=== PATIENT | female | born 1995 | race American Indian/Alaskan Native ===

== ENCOUNTER 2018-06-09 20:12 | Inpatient (IN) | payer MEDICAID ==
[2018-06-09] MEDS ORDERED: BRETHINE SUB-Q PRN (22:40)
[2018-06-09] MEDS ORDERED: BRETHINE IVP PRN (22:40)
[2018-06-09] MEDS ORDERED: XYLOCAINE 2% INFILTRATI ONE (22:40)
[2018-06-09] MEDS ORDERED: AMPICILLIN/NS 2 GM/100 ML 2 GM/100 ML BAG IV ONE (22:40)
[2018-06-09] MEDS ORDERED: MINERAL OIL PO PRN (22:40)
[2018-06-09] MEDS ORDERED: PITOCin/NS 30 UNIT/500ML 30 UNITS/500 ML BAG IV SCH (22:41)
[2018-06-09] MEDS ORDERED: AMBIEN PO PRN (22:43)
[2018-06-09] MEDS ORDERED: PITOCin/NS 20 UNIT/1000ML DRIP 20 UNITS/1,000 ML BAG IV SCH (23:00)
[2018-06-09 23:06] LABS: Hematocrit 39.2 % (30.3-42.9); Hemoglobin 13.4 gm/dl (10.1-14.3); Mean Corpuscular HGB Conc 34 % (30-34); Mean Corpuscular Volume 94 fl (79-97); Platelet Count 302 K/mm3 (140-440); Red Blood Count 4.16 M/mm3 (3.65-5.03); Red Cell Distribution Width 14.3 % (13.2-15.2)
[2018-06-09] MEDS: LACTATED RINGERS 1,000 ML IV SCH (23:20)
[2018-06-10] MEDS: LACTATED RINGERS 1,000 ML IV SCH ×3 (04:53→19:55)
--- NOTE | 2018-06-10 08:08 | History and Physical Report ---
History of Present Illness Date of examination: 06/10/18 Date of admission: 06/09/18 20:12 Chief complaint: IOL History of present illness: 23y/o @ 41+2 weeks presents for IOL for postterm . She denies leakage of fluid or vaginal bleeding. Patient transferred her care @ 30 weeks ega. +GBS Past History Past Medical History: no pertinent history Past Surgical History: no surgical history Social history: - Obstetrical History Expected Date of Delivery: 05/31/18 Actual Gestation: 41 Week(s) 4 Day(s) : 1 Para: 0 Hx # Term Pregnancies: 0 Number of Pregnancies: 0 Spontaneous Abortions: 0 Induced : 0 Number of Living Children: 0 Medications and Allergies Allergies Allergy/AdvReac Type Severity Reaction Status Date / Time No Known Allergies Allergy Verified 04/16/18 13:07 Home Medications Medication Instructions Recorded Confirmed Last Taken Type No Known Home Medications [No 06/10/18 06/10/18 Unknown History Reported Home Medications] Active Meds: Active Medications Butorphanol Tartrate (Stadol) 2 mg IV Q2H PRN PRN Reason: Pain , Severe (7-10) Ephedrine Sulfate (Ephedrine Sulfate) 10 mg IV Q2M PRN PRN Reason: Hypotension Lactated Ringer's (Lactated Ringers) 1,000 mls @ 125 mls/hr IV DIRECT FELIX Last Admin: 06/10/18 04:53 Dose: 125 mls/hr Documented by: Oxytocin/Sodium Chloride (Pitocin/Ns 20 Unit/1000ml Drip) 20 units in 1,000 mls @ 125 mls/hr IV DIRECT FELIX Oxytocin/Sodium Chloride (Pitocin/Ns 30 Unit/500ml) 30 units in 500 mls @ 1 ml s/hr IV TITR FELIX; Protocol Last Titration: 06/10/18 06:46 Dose: 6 ml/hr, 6 mls/hr Documented by: Mineral Oil (Mineral Oil) 30 ml PO QHS PRN PRN Reason: Constipation Terbutaline Sulfate (Brethine) 0.25 mg SUB-Q ONCE PRN PRN Reason: Hyperstimulation/Hypertonicity Terbutaline Sulfate (Brethine) 0.25 mg IVP ONCE PRN PRN Reason: Hyperstimulation/Hypertonicity Zolpidem Tartrate (Ambien) 10 mg PO QHS PRN PRN Reason: Insomnia Last Admin: 06/09/18 23:19 Dose: 10 mg Documented by: Review of Systems All systems: negative Genitourinary: no leakage of fluid, no contractions - Vital Signs Vital signs: Vital Signs Pulse Pulse Ox 89 98 06/09/18 21:21 06/09/18 21:21 Temp Pulse Resp BP Pulse Ox 98.8 F 89 18 87/53 99 06/09/18 21:24 06/10/18 04:52 06/09/18 21:24 06/10/18 04:20 06/10/18 04:52 - Physical Exam Breasts: Positive: deferred Cardiovascular: Regular rate Lungs: Positive: Clear to auscultation Abdomen: Positive: normal appearance Results Result Diagrams: 06/09/18 22:00 Abnormal lab results 06/09/18 Range/Units 22:00 WBC 11.6 H (4.5-11.0) K/mm3 All other labs normal. Assessment and Plan - Patient Problems (1) Post-term Current Visit: Yes Status: Acute Plan to address problem: admit for IOL
[2018-06-10] MEDS: STADOL IV PRN ×3 (12:33→17:18)
[2018-06-10] MEDS: AMPICILLIN/NS 1 GM/50 ML 1 GM/50 ML BAG IV SCH ×2 (17:45→20:26)
--- NOTE | 2018-06-10 18:48 | Anesthesia Day of Surgery ---
Anesthesia Day of Surgery - Day of Surgery Patient Examined: Yes Patient H&P Reviewed: Yes Patient is NPO: Yes Beta Blockers: No Cardiac Clearance: No Pulmonary Clearance: No Mj's Test: N/A
[2018-06-10] MEDS ORDERED: NARCAN 2 MG/2 ML IV PRN (18:49)
[2018-06-10] MEDS ORDERED: MARCAINE 0.25% INFILTRATI ONE (19:00)
--- NOTE | 2018-06-10 19:07 | Anesthesia Consultation ---
Anesthesia Consult and Med Hx - Airway Anesthetic Teeth Evaluation: Good ROM Head & Neck: Adequate Mental/Hyoid Distance: Adequate Mallampati Class: Class II Intubation Access Assessment: Probably Good - Pulmonary Exam CTA: Yes - Cardiac Exam Cardiac Exam: RRR - Pre-Operative Health Status ASA Pre-Surgery Classification: ASA3 Proposed Anesthetic Plan: Epidural - Pulmonary Hx Smoking: No Hx Asthma: No Hx Respiratory Symptoms: No SOB: No COPD: No Home Oxygen Therapy: No Hx Pneumonia: No Hx Sleep Apnea: No - Cardiovascular System Hx Hypertension: No Hx Coronary Artery Disease: No Hx Heart Attack/AMI: No Hx Angina: No Hx Percutaneous Transluminal Coronary Angioplasty (PTCA): No Hx Cardia Arrhythmia: No Hx Pacemaker: No Hx Internal Defibrillator: No Hx Valvular Heart Disease: No Hx Heart Murmur: No Hx Peripheral Vascular Disease: No - Central Nervous System Hx Neuromuscular Disorder: No Hx Seizures: No CVA: No Hx Back Pain: No Hx Psychiatric Problems: No - Gastrointestinal Hx Ulcer: No Hx Gastroesophageal Reflux Disease: No - Endocrine Hx Renal Disease: No Hx Hypothyroidism: No Hx Hyperthyroidism: No - Hematic Hx Anemia: No Hx Sickle Cell Disease: No - Other Systems Hx Alcohol Use: No
[2018-06-10] MEDS: fentaNYL-BUPIV 2 MCG/ML-0.125% 200 MCG/100 ML BAG EPIDURAL SCH (20:04)
[2018-06-11] MEDS: AMPICILLIN/NS 1 GM/50 ML 1 GM/50 ML BAG IV SCH ×2 (01:13→05:13)
[2018-06-11] MEDS ORDERED: GENTAMICIN/NS 80 MG/100 ML 100 ML IV SCH (01:30)
[2018-06-11] MEDS ORDERED: TYLENOL PO ONE (04:10)
[2018-06-11] MEDS: LACTATED RINGERS 1,000 ML IV SCH (04:11)
[2018-06-11] MEDS: fentaNYL-BUPIV 2 MCG/ML-0.125% 200 MCG/100 ML BAG EPIDURAL SCH (04:11)
--- NOTE | 2018-06-11 05:30 | Post Anesthesia Evaluation ---
- Post Anesthesia Evaluation Patient Participated: Yes Airway Patent: Yes Stable Respiratory Function: Yes Nausea/Vomiting: No Temp > 96.8F: No Pain Manageable: Yes Adequeate Hydration: Yes Anesthesia Complications: No Block Receding Appropriately: Yes Patient on Ventilator: No
--- NOTE | 2018-06-11 06:58 | Event Note ---
Date: 06/11/18 Patient has experienced elevated temperatures and mild tachycardia during her intrapartum. IV antibiotics initiated. Experienced a few episodes of intermittent late decels that resolved. The patient has progressed to 7cm and head is well applied to the cervix. Will continue current management.
[2018-06-11] MEDS ORDERED: BENADRYL PO PRN (09:15)
[2018-06-11] MEDS ORDERED: TUCKS PAD TP PRN (09:15)
[2018-06-11] MEDS ORDERED: MILK OF MAGNESIA PO PRN (09:15)
[2018-06-11] MEDS ORDERED: PHENERGAN PR PRN (09:15)
[2018-06-11] MEDS ORDERED: PHENERGAN PO PRN (09:15)
[2018-06-11] MEDS ORDERED: TYLENOL PO PRN (09:15)
[2018-06-11] MEDS ORDERED: ZOFRAN IV PRN (09:15)
[2018-06-11] MEDS ORDERED: LANSINOH TP PRN (09:15)
[2018-06-11] MEDS ORDERED: DULCOLAX PR PRN (09:15)
--- NOTE | 2018-06-11 09:15 | Procedure Note ---
OB Delivery Note - Delivery Date of Delivery: 06/11/18 Surgeon: AMAURY CARTAGENA Estimated blood loss: other (150ml) - Vaginal Delivery presentation: vertex Delivery position: OA Intrapartum events: meconium Delivery augmentation: pitocin Delivery monitor: external FHT Route of delivery: Delivery placenta: spontaneous Delivery cord: 3 umbilical vessels Episiotomy: none Delivery laceration: 2nd degree Delivery repair: vicryl Anesthesia: epidural Delivery comments: The patient progressed to complete complete +2 and pushed to deliver a liveborn female with Apgars of 8 and 9 weight 7 lbs. 9 oz. After delivery of the head the shoulders delivered with a compound hand presentation. The cord was immediately clamped and cut and the infant was passed to pediatrics in attendance secondary to meconium at delivery. The placenta delivered spontaneously intact with three-vessel cord. The patient sustained a midline second-degree laceration that was repaired with 2-0 Vicryl in a normal fashion. Estimated blood loss 150 mL. - A at 1 minute: 8 at 5 minutes: 9 Infant Gender: Female (weight 7lbs 9oz)
[2018-06-11] MEDS ORDERED: SODIUM CHLORIDE FLUSH SYRINGE 10 ML IV NR (10:00)
[2018-06-11] MEDS: IBUPROFEN PO SCH ×2 (12:52→18:14)
[2018-06-11 22:20] LABS: Hematocrit 33.2 % (30.3-42.9); Hemoglobin 11.6 gm/dl (10.1-14.3)
[2018-06-12] MEDS: NORCO 5/325 PO PRN ×3 (03:23→23:14)
[2018-06-12] MEDS: IBUPROFEN PO SCH ×4 (06:54→23:14)
--- NOTE | 2018-06-12 08:25 | Progress Note ---
Assessment and Plan A/p ppd 1 s/p doing well routine pp orders d/c home tomorrow Subjective - Subjective Date of service: 06/12/18 Principal diagnosis: Patient reports: appetite normal, voiding normally, pain well controlled, flatu s, ambulating normally [place]: doing well Objective - Vital Signs Latest vital signs: Vital Signs Temp Pulse Resp BP BP Pulse Ox 06/12/18 06:54 22 06/12/18 03:23 18 06/12/18 00:00 98.2 F 75 18 94/50 06/11/18 20:05 98.6 F 73 18 105/58 06/11/18 15:10 98.2 F 102 H 18 106/52 97 06/11/18 12:52 20 06/11/18 11:49 98.6 F 67 20 106/63 97 06/11/18 11:00 72 114/53 06/11/18 10:30 86 107/58 06/11/18 10:00 87 109/54 06/11/18 09:30 96 H 105/57 06/11/18 09:00 98 H 127/56 06/11/18 08:50 94 H 99 06/11/18 08:45 116 H 99 06/11/18 08:40 112 H 97 06/11/18 08:35 109 H 99 06/11/18 08:31 112 H 124/76 06/11/18 08:30 109 H 98 06/11/18 08:25 108 H 96 Intake and Output 06/11/18 06/12/18 06/12/18 23:59 07:59 15:59 Intake Total 240 120 Balance 240 120 Intake: Oral 240 120 Other: Total, Intake Amount 240 120 # Voids Void 1 1 - Exam Breasts: Present: normal Cardiovascular: Present: Regular rate, Normal S1 Lungs: Present: Clear to auscultation, Normal air movement Abdomen: Present: normal appearance, soft, normal bowel sounds. Absent: distention, tenderness, guarding Uterus: Present: normal, firm, fundal height below umbilicus. Absent: bogginess, tenderness Extremities: Present: normal Deep Tendon Reflex Grade: Normal +2
--- NOTE | 2018-06-12 08:27 | Discharge Summary ---
Providers - Providers Date of Admission: 06/09/18 20:12 Date of discharge: 06/13/18 Attending physician: MYLENE MORENO MD Primary care physician: MYLENE MORENO MD Hospitalization Reason for admission: induction of labor Delivery: Episiotomy: none Laceration: none Incision: normal, dry, intact Other procedures: none complications: none Discharge diagnosis: IUP at term delivered baby: female Hospital course: patient came in for IOl. Delivered of a viable female . Doing well. d/c home ppd 2 with f/u in 4 weeks Condition at discharge: Good Disposition: DC-01 TO HOME OR SELFCARE Plan - Discharge Medications Prescriptions: Ibuprofen [Motrin] 600 mg PO Q8H PRN #30 tablet PRN Reason: Pain oxyCODONE /ACETAMINOPHEN [Percocet 5/325] 1 tab PO Q6HR PRN #30 tablet PRN Reason: Pain - Provider Discharge Summary Activity: routine, no sex for 6 weeks, no strenuous exercise Diet: routine Instructions: routine Additional instructions: [] Smoking cessation referral if applicable(refer to patient education folder for contact #) [] Refer to [facility] Booklet Call your doctor immediately for: * Fever > 100.5 * Heavy vaginal bleeding ( >1 pad per hour) * Severe persistent headache * Shortness of breath * Reddened, hot, painful area to leg or breast * Drainage or odor from incision. * Keep incision clean and dry at all times and follow doctor's instructions regarding bathing/showering - Follow up plan Follow up: MYLENE MORENO MD [Primary Care Provider] - 07/09/18
[2018-06-13] MEDS: NORCO 5/325 PO PRN ×2 (05:20→23:23)
[2018-06-13] MEDS: IBUPROFEN PO SCH ×3 (05:20→23:23)
[2018-06-14] MEDS: NORCO 5/325 PO PRN (05:35)
[2018-06-14] MEDS: IBUPROFEN PO SCH (05:35)
[2018-06-14 09:25] VITALS: BP 107/88
== END 2018-06-14 13:00 | disposition home or self-care (01) | DRG 775 ==
LOC: LD 20:12 → OB 06-11 11:54
PROVIDERS: ADMIT Obstetrics & Gynecology; ATTEND Obstetrics & Gynecology
PROC: 10E0XZZ Delivery of Products of Conception, External Approach (ICD-10-PCS; principal; 2018-06-11)
PROC: 0KQM0ZZ Repair Perineum Muscle, Open Approach (ICD-10-PCS; 2018-06-11)
PROC: 3E0R3BZ Introduction of Anesthetic Agent into Spinal Canal, Percutaneous Approach (ICD-10-PCS; 2018-06-11)
PROC: 00HU33Z Insertion of Infusion Device into Spinal Canal, Percutaneous Approach (ICD-10-PCS; 2018-06-11)
DX: O77.0 Labor and delivery complicated by meconium in amniotic fluid (principal); O99.824 Streptococcus B carrier state complicating childbirth; O48.0 Post-term pregnancy; R00.0 Tachycardia, unspecified; O99.89 Other specified diseases and conditions complicating pregnancy, childbirth and the puerperium; O70.1 Second degree perineal laceration during delivery; Z3A.41 41 weeks gestation of pregnancy; Z37.0 Single live birth
CPT/HCPCS: 36415; 85014; 85018; 85027; 86592; 86850; 86900; 86901; G0378; J0290; J0595; J1580; J2590; J7120

== ENCOUNTER 2020-07-10 06:52 | Inpatient (IN) | payer MEDICAID ==
[2020-07-10 08:48] LABS: Bilirubin,Urine NEG (Negative); Blood,Urine SM (Negative); Color,Urine Yellow (Yellow); Mucus,Urine FEW /HPF; Protein,Urine <15 mg/dL mg/dL (Negative); Urobilinogen,Urine < 2.0 mg/dL (<2.0)
[2020-07-10 08:59] LABS: Amphetamine Screen,Urine Negative; Benzodiazepines Screen,Urine Negative; Cannabinoid Screen,Urine Negative; Cocaine Screen,Urine Negative; Methadone Screen,Urine Negative; Opiate Screen,Urine Negative
[2020-07-10] MEDS ORDERED: MINERAL OIL 30 ML ORAL LIQD PO PRN (09:08)
[2020-07-10] MEDS ORDERED: ePHEDrine SULFATE 50 MG/1 ML INJ IV PRN (09:08)
[2020-07-10] MEDS ORDERED: fentaNYL 100 MCG/2 ML INJ IV PRN (09:08)
[2020-07-10] MEDS ORDERED: TERBUTALINE 1 MG/1 ML INJ SUB-Q PRN (09:08)
[2020-07-10] MEDS ORDERED: ACETAMINOPHEN 325 MG TAB PO PRN ×2 (09:08→14:12)
[2020-07-10] MEDS ORDERED: BUTORPHANOL 2 MG/1 ML INJ IV PRN (09:08)
[2020-07-10] MEDS ORDERED: ONDANSETRON 4 MG/2 ML INJ IV PRN ×2 (09:08→14:12)
[2020-07-10] MEDS ORDERED: AMPICILLIN/NS 2 GM/100 ML 2 GM/100 ML BAG IV ONE (10:00)
[2020-07-10] MEDS ORDERED: OXYTOCIN DRIP 30 UNITS/500 ML BAG IV SCH ×2 (10:00)
[2020-07-10] MEDS ORDERED: LIDOCAINE (2%) 20 MG/1 ML VIAL 20 ML MDV INFILTRATI ONE (10:00)
[2020-07-10 10:14] LABS: Hematocrit 37.3 % (30.3-42.9); Hemoglobin 13.2 gm/dl (10.1-14.3); Mean Corpuscular HGB Conc 35 % (30-34); Mean Corpuscular Volume 94 fl (79-97); Platelet Count 267 K/mm3 (140-440); Red Blood Count 3.96 M/mm3 (3.65-5.03); Red Cell Distribution Width 13.9 % (13.2-15.2)
--- NOTE | 2020-07-10 10:24 | History and Physical Report ---
History of Present Illness Date of examination: 07/10/20 Chief complaint: contractions History of present illness: 25-year-old -0-0-1 at 40-1/7 weeks with MICHEAL 07/09/2020 admitted in early [facility] with painful contractions. [facility] [employer]. records in chart. Past History Social history: no significant social history - Obstetrical History Expected Date of Delivery: 07/09/20 Actual Gestation: 40 Week(s) 1 Day(s) : 2 Medications and Allergies Allergies Allergy/AdvReac Type Severity Reaction Status Date / Time No Known Allergies Allergy Verified 04/16/18 13:07 Home Medications Medication Instructions Recorded Confirmed Last Taken Type Ibuprofen [Motrin] 600 mg PO Q8H PRN #30 tablet 07/10/20 Unknown Rx Active Meds: Active Medications Acetaminophen (Acetaminophen 325 Mg Tab) 650 mg PO Q4H PRN PRN Reason: Pain, Mild (1-3) Butorphanol Tartrate (Butorphanol 2 Mg/1 Ml Inj) 1 mg IV Q2H PRN PRN Reason: Pain, Moderate(4-6) LABOR PAIN Ephedrine Sulfate (Ephedrine Sulfate 50 Mg/1 Ml Inj) 10 mg IV Q2M PRN PRN Reason: Hypotension Fentanyl (Fentanyl 100 Mcg/2 Ml Inj) 100 mcg IV Q2H PRN PRN Reason: Pain,Severe (7-10) LABOR PAIN Oxytocin/Sodium Chloride (Pitocin/Ns 30 Unit/500ml) 30 units in 500 mls @ 2 mls/hr IV TITR FELIX; Protocol Lactated Ringer's (Lactated Ringers) 1,000 mls @ 125 mls/hr IV DIRECT FELIX Oxytocin/Sodium Chloride (Pitocin/Ns 30 Unit/500ml) 30 units in 500 mls @ 40 mls/hr IV TITR FELIX; Protocol Ampicillin Sodium (Ampicillin/Ns 2 Gm/100 Ml) 2 gm in 100 mls @ 100 mls/hr IV ONCE ONE; Protocol Stop: 07/10/20 10:59 Mineral Oil (Mineral Oil 30 Ml Oral Liqd) 30 ml PO QHS PRN PRN Reason: Constipation Ondansetron HCl (Ondansetron 4 Mg/2 Ml Inj) 4 mg IV Q8H PRN PRN Reason: Nausea And Vomiting Terbutaline Sulfate (Terbutaline 1 Mg/1 Ml Inj) 0.25 mg SUB-Q ONCE PRN PRN Reason: Hyperstimulation/Hypertonicity - Vital Signs Vital signs: Vital Signs Pulse Pulse Ox 74 86 07/10/20 07:12 07/10/20 07:12 Temp Pulse Resp BP Pulse Ox 97.8 F 88 16 121/95 99 07/10/20 09:14 07/10/20 10:13 07/10/20 09:14 07/10/20 09:14 07/10/20 10:13 Results Result Diagrams: 07/10/20 09:15 Abnormal lab results 07/10/20 Range/Units 09:15 MCH 33 H (28-32) pg MCHC 35 H (30-34) % All other labs normal. Assessment and Plan painful contractions, plan for admission/pain managements Patient in early labor, will monitor closely for appropriate cervical change; oxytocin as needed GBS positive, will treat CFM maternal/ well being reassuring at this time Jessi Caicedo MD
[2020-07-10] MEDS: LACTATED RINGERS 1,000 ML IV SCH ×2 (11:12→13:39)
[2020-07-10] MEDS ORDERED: METHYLERGONOVINE MALEATE 0.2 MG/ML VIAL IM ONE ×2 (13:55)
[2020-07-10] MEDS ORDERED: PROMETHAZINE 25 MG TAB PO PRN (14:12)
[2020-07-10] MEDS ORDERED: LANOLIN/ZINC/DIMETHICONE (LANSINOH) 7 GM TP PRN (14:12)
[2020-07-10] MEDS ORDERED: HYDROcodone/ACETAMINOPHEN 5-325 MG TAB PO PRN (14:12)
[2020-07-10] MEDS ORDERED: MAGNESIUM HYDROXIDE (MOM) ORAL LIQD UDC PO PRN (14:12)
[2020-07-10] MEDS ORDERED: WITCH HAZEL/ GLYCERIN PAD TP PRN (14:12)
[2020-07-10] MEDS ORDERED: diphenhydrAMINE 25 MG CAP PO PRN (14:12)
[2020-07-10] MEDS ORDERED: PROMETHAZINE 25 MG RECT SUPP PR PRN (14:12)
--- NOTE | 2020-07-10 14:21 | Procedure Note ---
OB Delivery Note - Delivery Date of Delivery: 07/10/20 Surgeon: VISH MOY Estimated blood loss: 500cc - Vaginal Delivery position: OA Intrapartum events: none Delivery induction: none Delivery augmentation: pitocin Delivery monitor: external FHT, external uterine Route of delivery: Delivery placenta: spontaneous Delivery cord: 3 umbilical vessels Episiotomy: none Delivery laceration: none Delivery comments: Patient pushed to delivery a viable female with weight 3428 gms and 8/9. Position MOI, no nuchal cord. Delivery of the anterior shoulder without complications, remainder of the delivery uncomplicated. Spontaneous cry at delivery. Baby placed on maternal abdomen, NICU present for delivery. After delayed cord clamping ~1 minute, cord was clamped and cut and baby taken to warmer by NICU staff. An intact placenta with three vessel cord delivered spontaneously. Firm fundus, no lacerations immediately following delivery. The uterus was then noted to be atonic with blood clots at the external os and brisk bleeding which resolved with bimanual massage and Methergine 0.2mg IMx1 dose. total EBL 500ml. All sponge needle and instrument counts are correct x2. Mom and baby stable to . Jessi Moy MD
[2020-07-10] MEDS: IBUPROFEN 600 MG TAB PO SCH ×2 (15:21→22:26)
[2020-07-11 01:50] LABS: Hematocrit 35.6 % (30.3-42.9); Hemoglobin 12.5 gm/dl (10.1-14.3)
[2020-07-11] MEDS: IBUPROFEN 600 MG TAB PO SCH ×3 (05:48→20:35)
--- NOTE | 2020-07-11 07:49 | Progress Note ---
Assessment and Plan A: PPD s/p at term GBS+ s/p 1 dose of Amp COVID+ P: Continue with routine care with anticipated discharge tomorrow morning. Subjective - Subjective Date of service: 07/11/20 Principal diagnosis: PPD1 s/p at term Interval history: Patient is feeling and has no complaints at this time, currently bonding with infant. Denies pain and reports decreasing lochia. Patient reports: appetite normal, voiding normally, pain well controlled, ambulating normally [place]: doing well Objective - Vital Signs Latest vital signs: Vital Signs Temp Pulse Resp BP BP Pulse Ox 07/11/20 01:35 97.8 F 76 20 105/61 98 07/10/20 20:50 99 F 86 18 109/61 07/10/20 16:16 97.9 F 77 19 112/54 100 07/10/20 15:05 27 L 89 07/10/20 15:04 86 99 07/10/20 15:00 84 18 111/63 111/63 99 07/10/20 14:59 85 100 07/10/20 14:54 90 99 07/10/20 14:49 77 100 07/10/20 14:46 83 102/57 07/10/20 14:45 88 18 102/57 99 07/10/20 14:44 81 100 07/10/20 14:39 78 100 07/10/20 14:36 77 119/61 07/10/20 14:35 77 18 119/61 99 07/10/20 14:34 94 H 99 07/10/20 14:29 86 99 07/10/20 14:24 87 99 07/10/20 14:19 83 99 07/10/20 14:16 206 H 117/70 07/10/20 14:15 93 H 18 117/70 98 07/10/20 14:14 93 H 98 07/10/20 14:09 88 100 07/10/20 14:04 89 99 07/10/20 14:00 99.0 F 90 18 115/55 115/55 100 07/10/20 13:59 93 H 100 07/10/20 13:55 87 122/57 91 07/10/20 13:54 85 98 07/10/20 13:49 105 H 99 07/10/20 13:46 84 83 L 07/10/20 13:43 99 H 98 07/10/20 13:38 125 H 99 07/10/20 13:33 112 H 97 07/10/20 13:28 104 H 94 07/10/20 13:26 100 H 105/58 07/10/20 13:23 96 H 96 07/10/20 13:21 63 L 07/10/20 13:18 106 H 99 07/10/20 13:13 82 97 07/10/20 13:08 116 H 98 07/10/20 13:03 85 97 07/10/20 12:58 117 H 98 07/10/20 12:55 90 121/71 07/10/20 12:53 110 H 96 07/10/20 12:48 95 H 97 07/10/20 12:45 124 H 94 07/10/20 12:43 92 H 97 07/10/20 12:38 107 H 99 07/10/20 12:33 98 H 98 07/10/20 12:28 81 96 07/10/20 12:27 87 121/67 07/10/20 12:23 125 H 97 07/10/20 12:18 90 96 07/10/20 12:13 97 H 97 07/10/20 12:08 91 H 95 07/10/20 12:05 85 91 07/10/20 12:03 83 96 07/10/20 11:58 80 96 07/10/20 11:55 89 119/70 07/10/20 11:53 95 H 96 07/10/20 11:51 84 91 07/10/20 11:48 83 98 07/10/20 11:46 111 H 94 07/10/20 11:43 82 95 07/10/20 11:38 101 H 99 07/10/20 11:37 88 121/71 94 07/10/20 11:33 77 97 07/10/20 11:29 67 69 L 07/10/20 11:28 120 H 98 07/10/20 11:25 75 89/53 07/10/20 11:23 73 95 07/10/20 11:20 57 L 71 L 07/10/20 11:18 82 98 07/10/20 11:13 82 96 07/10/20 10:55 120 H 129/78 07/10/20 10:52 95 H 98 07/10/20 10:47 87 98 07/10/20 10:42 88 98 07/10/20 10:37 88 98 07/10/20 10:32 71 98 07/10/20 10:27 82 97 07/10/20 10:22 88 98 07/10/20 10:13 88 99 07/10/20 10:12 108 H 94 07/10/20 10:08 78 96 07/10/20 10:03 98 H 100 07/10/20 10:02 69 93 07/10/20 09:58 76 97 07/10/20 09:53 98 H 99 07/10/20 09:48 84 98 07/10/20 09:43 88 98 07/10/20 09:38 85 98 07/10/20 09:33 80 98 07/10/20 09:21 93 H 97 07/10/20 09:16 101 H 97 07/10/20 09:14 97.8 F 95 H 16 121/95 99 07/10/20 09:11 85 98 07/10/20 09:06 87 98 07/10/20 09:01 84 99 07/10/20 08:54 99 H 121/75 07/10/20 08:53 119 H 98 07/10/20 08:34 82 98 07/10/20 08:29 83 97 07/10/20 08:24 71 97 07/10/20 08:19 77 98 07/10/20 08:14 80 98 07/10/20 08:09 94 H 97 07/10/20 08:08 86 129/60 07/10/20 08:05 80 L 07/10/20 08:04 113 H 83 L 07/10/20 08:01 90 07/10/20 07:55 69 83 L 07/10/20 07:52 90 99 07/10/20 07:47 85 98 Intake and Output 07/10/20 07/10/20 07/11/20 15:59 23:59 07:59 Intake Total 306.25 1480 840 Output Total 700 Balance 306.25 780 840 Intake: IV 306.25 1000 Lactated Ringers 1,000 ml 306.25 1000 @ 125 mls/hr IV DIRECT FELIX Rx#:[id number] Intake, Free Water 480 840 Output: Urine 700 Void 700 Other: Total, Output Amount 450 # Voids Void 1 3 1 Estimated Blood Loss 500 - Exam Breasts: Present: deferred Uterus: Present: firm, fundal height below umbilicus - Labs Labs: Abnormal lab results 07/10/20 07/10/20 Range/Units 08:58 09:15 MCH 33 H (28-32) pg MCHC 35 H (30-34) % Coronavirus (PCR) Positive A (Negative)
--- NOTE | 2020-07-11 07:49 | Discharge Summary ---
Providers - Providers Date of Admission: 07/10/20 10:25 Date of discharge: 07/12/20 Attending physician: JUAN PABLO ZARAGOZA Primary care physician: JUAN PABLO ZARAGOZA Hospitalization Reason for admission: active labor Delivery: Episiotomy: none Laceration: none Other procedures: none complications: none Discharge diagnosis: IUP at term delivered baby: female Condition at discharge: Good Disposition: DC-01 TO HOME OR SELFCARE Plan - Discharge Medications Prescriptions: Ibuprofen [Motrin] 600 mg PO Q8H PRN #30 tablet PRN Reason: Pain - Provider Discharge Summary Activity: no sex for 6 weeks, no heavy lifting 4 weeks, no strenuous exercise Diet: routine Instructions: routine Additional instructions: [] Smoking cessation referral if applicable(refer to patient education folder for contact #) [] Refer to [facility] Booklet Call your doctor immediately for: * Fever > 100.5 * Heavy vaginal bleeding ( >1 pad per hour) * Severe persistent headache * Shortness of breath * Reddened, hot, painful area to leg or breast * Drainage or odor from incision. * Keep incision clean and dry at all times and follow doctor's instructions regarding bathing/showering Please complete COVID testing prior to visit and bring a copy of your negative results. - Follow up plan Follow up: NIC MARKHAM NP [Advanced Practice Nurse] - 08/07/20
[2020-07-12] MEDS: IBUPROFEN 600 MG TAB PO SCH (06:30)
--- NOTE | 2020-07-12 11:51 | Consultation ---
History of Present Illness - Reason for Consult Consult date: 07/12/20 Reason for consult: MHE Requesting physician: NIC MARKHAM - Chief Complaint Chief complaint: contractions - History of Present Psychiatric Illness PSYCH HPI Patient is a 25 year old , unemployed female with no significant past medical history or psychiatric history who was admitted to mother and baby for delivery with psychiatric consult placed due to high score on [place] scale. Per patient, she says she was stressed during and that was why score was high but otherwise she feels fine. She denies having any safety concerns at home or with the baby. Patient describes a good and stable mood, denies being depressed or excessively nervous. Patient eats and sleeps well. Patient denies panic attacks, recurrent nightmares or flashbacks. Patient denies symptoms suggestive of OCD or PTSD. Patient denies hallucinations, paranoia, thought interference and no features suggestive of hypomania or marshall. Patiently completely denies suicidal or homicidal thoughts. PAST PSYCHIATRIC HISTORY Diagnoses: none reported Suicide attempts or Self-harm behavior: none reported Prior psychiatric hospitalizations: none reported Substance Abuse history: none reported Previous psychiatric medications tried: none reported Outpatient treatment: none reported PAST MEDICAL HISTORY: None reported. Covid Positive Family Psychiatric History: None reported or documented SOCIAL HISTORY Marital Status: Living Arrangements: with Employment Status: unemployed Access to guns/weapons: Education: in college History of Abuse: none reported Legal History: none reported REVIEW OF SYSTEMS Constitutional: Negative for weight loss ENT: Negative for stridor Respiratory: Negative for cough or hemoptysis All other systems reviewed and are negative MENTAL STATUS EXAMINATION General Appearance and Behavior: Age appropriate, good hygiene, wearing appropriate clothes, good eye contact, cooperative polite with questioning. Cooperation: Participating/engaged Psychomotor Behavior: unremarkable and within normal limits Mood: Good Affect and affective range: congruent with mood Thought Process: Fluent/Logical, Thought Content: Within reality, Speech: Normal volume, Regular rate and rhythm, Intellectual Functioning: Average Suicidal Ideation: Denies SI Homicidal Ideation: Denies HI Impulse Control: Unimpaired Insight and Judgment: Normal insight and judgment, Memory: Normal, Attention: Normal, Orientation: Alert, oriented Diagnoses: Assessment and Plan - Psychiatric problem (1) No abnormality detected on mental health assessment Current Visit: Yes Status: Acute Z71.3 Treatment Plan MEDICATIONS: Risks, benefits and alternatives of medications discussed with the patient, questions answered and consent obtained from patient. PSYCHOTHERAPY: Supportive psychotherapy provided MEDICAL: Per primary team DELIRIUM PRECAUTIONS: Please re-orient patient frequently, keep lights on during the day, and minimize benzodiazepines and opiates as these medications could worsen patient's confusion. ASSEMBLER SHOW MOTOR: DISPOSITION: Do Not Recommend acute inpatient psychiatric hospitalization at this time. Case discussed with Dr. Bangura who agrees with current disposition LEGAL STATUS: Voluntary FOLLOW-UP: Will sign off Thank you for the consult. Please contact with any questions and/or concerns. Medications and Allergies Allergies Allergy/AdvReac Type Severity Reaction Status Date / Time No Known Allergies Allergy Verified 04/16/18 13:07 Home Medications Medication Instructions Recorded Confirmed Last Taken Type Ibuprofen [Motrin] 600 mg PO Q8H PRN #30 tablet 07/10/20 Unknown Rx Ibuprofen [Motrin] 800 mg PO Q8HR PRN #30 tablet 07/11/20 Unknown Rx Active Meds: Active Medications Acetaminophen (Acetaminophen 325 Mg Tab) 650 mg PO Q4H PRN PRN Reason: Pain MILD(1-3)/Fever >100.5/GUZMAN Last Admin: 07/12/20 08:47 Dose: 650 mg Documented by: Hydrocodone Bitart/Acetaminophen (Hydrocodone/Acetaminophen 5-325 Mg Tab) 2 each PO Q6H PRN PRN Reason: Pain, Moderate (4-6) Bisacodyl (Bisacodyl 10 Mg Rect Supp) 10 mg CO BID PRN PRN Reason: Constipation Butorphanol Tartrate (Butorphanol 2 Mg/1 Ml Inj) 1 mg IV Q2H PRN PRN Reason: Pain, Moderate(4-6) LABOR PAIN Last Admin: 07/10/20 11:37 Dose: 1 mg Documented by: Diphenhydramine HCl (Diphenhydramine 25 Mg Cap) 25 mg PO Q6H PRN PRN Reason: Itching Ephedrine Sulfate (Ephedrine Sulfate 50 Mg/1 Ml Inj) 10 mg IV Q2M PRN PRN Reason: Hypotension Fentanyl (Fentanyl 100 Mcg/2 Ml Inj) 100 mcg IV Q2H PRN PRN Reason: Pain,Severe (7-10) LABOR PAIN Oxytocin/Sodium Chloride (Pitocin/Ns 30 Unit/500ml) 30 units in 500 mls @ 2 mls/hr IV TITR FELIX; Protocol Last Admin: 07/10/20 11:13 Dose: 2 mls/hr, 2 mls/hr Documented by: Lactated Ringer's (Lactated Ringers) 1,000 mls @ 125 mls/hr IV DIRECT FELIX Last Infusion: 07/10/20 22:26 Dose: Infused Documented by: Oxytocin/Sodium Chloride (Pitocin/Ns 30 Unit/500ml) 30 units in 500 mls @ 40 mls/hr IV TITR FELIX; Protocol Ibuprofen (Ibuprofen 600 Mg Tab) 600 mg PO Q6H FELIX Last Admin: 07/12/20 06:30 Dose: 600 mg Documented by: Magnesium Hydroxide (Magnesium Hydroxide (Mom) Oral Liqd Udc) 30 ml PO HS PRN PRN Reason: Constipation Mineral Oil (Mineral Oil 30 Ml Oral Liqd) 30 ml PO QHS PRN PRN Reason: Constipation Multi-Ingredient Ointment (Lanolin/Zinc/Dimethicone (Lansinoh) 7 Gm) 1 applic TP PRN PRN PRN Reason: Sore Nipples Ondansetron HCl (Ondansetron 4 Mg/2 Ml Inj) 4 mg IV Q8H PRN PRN Reason: Nausea And Vomiting Promethazine HCl (Promethazine 25 Mg Rect Supp) 25 mg CO Q6H PRN PRN Reason: Nausea And Vomiting Promethazine HCl (Promethazine 25 Mg Tab) 25 mg PO Q6H PRN PRN Reason: Nausea And Vomiting Sodium Chloride (Sodium Chloride 0.9% 10 Ml Flush Syringe) 10 ml IV PRN FELIX Terbutaline Sulfate (Terbutaline 1 Mg/1 Ml Inj) 0.25 mg SUB-Q ONCE PRN PRN Reason: Hyperstimulation/Hypertonicity Witch Iza/Glycerin (Witch Iza/ Glycerin Pad) 1 each TP PRN PRN PRN Reason: Hemorrhoid/cleansing/soothing Mental Status Exam - Vital signs Last Vital Signs Temp 97.9 F 07/12/20 08:30 Pulse 77 07/12/20 08:30 Resp 18 07/12/20 08:30 BP 106/64 07/12/20 08:30 Pulse Ox 97 07/12/20 08:30 Results Result Diagrams: 07/11/20 01:00 All other labs normal. Assessment and Plan - Psychiatric problem (1) No abnormality detected on mental health assessment Current Visit: Yes Status: Acute
[2020-07-12 14:44] VITALS: BP 96/72
== END 2020-07-12 16:35 | disposition home or self-care (01) | DRG 774 ==
LOC: TRG 06:52 → APU 06:54 → LD 08:45 → TRG 09:08 → LD 10:25 → OB 17:19
PROVIDERS: ADMIT Obstetrics & Gynecology; ATTEND Obstetrics & Gynecology
PROC: 10E0XZZ Delivery of Products of Conception, External Approach (ICD-10-PCS; principal; 2020-07-10)
DX: O99.824 Streptococcus B carrier state complicating childbirth (principal); O98.52 Other viral diseases complicating childbirth; Z3A.40 40 weeks gestation of pregnancy; Z37.0 Single live birth; U07.1 COVID-19; Z79.899 Other long term (current) drug therapy
CPT/HCPCS: 36415; 59025; 80307; 81001; 85014; 85018; 85027; 86850; 86900; 86901; G0378; J0595; J2210; J2590; J7120; U0003